=== PATIENT | female | born 1965 | race Caucasian/White ===

== ENCOUNTER 2017-06-02 08:00 | Outpatient (CLI) | payer OTHER ==
[2017-06-03 10:52] LABS: PROGESTERONE 1.1 ng/mL
== END 2017-06-02 23:59 | disposition home or self-care (01) ==
LOC: LAB.F 08:00
PROVIDERS: ATTEND Naturopath
DX: R00.2 Palpitations (principal); Z13.29 Encounter for screening for other suspected endocrine disorder; E27.8 Other specified disorders of adrenal gland
CPT/HCPCS: 36415; 81599; 82384; 82570; 82627; 82672; 84140; 84144; 84270; 84403

== ENCOUNTER 2017-06-16 09:02 | Outpatient (CLI) | payer OTHER ==
[2017-06-16 18:14] LABS: PROLACTIN 6.61 ng/mL
[2017-06-16 18:37] LABS: FOLLICLE STIMULATING HORMONE 84.43 mIU/mL; LUTEINIZING HORMONE 31.58 mIU/mL
== END 2017-06-16 09:03 | disposition home or self-care (01) ==
LOC: LAB.F 09:02
PROVIDERS: ATTEND Naprapath
DX: F41.9 Anxiety disorder, unspecified (principal); R00.2 Palpitations; Z13.29 Encounter for screening for other suspected endocrine disorder; E34.9 Endocrine disorder, unspecified
CPT/HCPCS: 36415; 82024; 82533; 83001; 83002; 84146

== ENCOUNTER 2017-06-21 09:41 | Outpatient (CLI) | payer OTHER | END 2017-06-21 09:42 | disposition home or self-care (01) | LOC: LAB.F 09:41 | PROVIDERS: ATTEND Naprapath | DX: Z13.29 Encounter for screening for other suspected endocrine disorder (principal); F41.9 Anxiety disorder, unspecified; R00.2 Palpitations; E34.9 Endocrine disorder, unspecified | CPT/HCPCS: 82024 ==

== ENCOUNTER 2017-06-22 09:00 | Outpatient (CLI) | payer OTHER | END 2017-06-22 09:01 | disposition home or self-care (01) | LOC: LAB.R 09:00 | PROVIDERS: ATTEND Naprapath | DX: F41.9 Anxiety disorder, unspecified (principal); R00.2 Palpitations; Z13.29 Encounter for screening for other suspected endocrine disorder; E34.9 Endocrine disorder, unspecified | CPT/HCPCS: 81599; 82384 ==

== ENCOUNTER 2018-06-04 16:37 | Outpatient (CLI) | payer OTHER ==
--- NOTE | 2018-06-07 13:37 | Ultrasound Report ---
Reason: ENDOCRINE DISORDER, UNSPECIFIED Procedure Date: 06/04/2018 Accession Number: [id number] / [id number] Procedure: US - Pelvic w/Transvaginal CPT Code: FULL RESULT: EXAM: PELVIC ULTRASOUND EXAM DATE: 06/04/2018 05:32 PM. CLINICAL HISTORY: ENDOCRINE DISORDER, UNSPECIFIED. COMPARISON: None. TECHNIQUE: Realtime transabdominal pelvic scan performed to identify the uterus and adnexa and as an overview of other pelvic structures, followed by transvaginal scan to provide greater detail of the uterus and adnexa, with static image documentation. FINDINGS: Uterus: 7.4 x 3.2 x 2.7 cm, volume 33 cc. Anteverted position. Normal overall size and echotexture. Masses: Hypoechoic 1.9 x 1.5 x 1.5 cm myometrial fundal mass, possible fibroid with submucosal component. Endometrium: Incomplete examination, additional color Doppler imaging transvaginally is needed. Cervix: Unremarkable. Right Ovary: 1.8 x 1.2 x 1.1 cm, volume 1.2 cc. Normal echotexture and blood flow. Left Ovary: 1.3 x 1.3 x 1.3 cm, volume 1.1 cc. Normal echotexture and blood flow. Free Fluid: None. Other: None. IMPRESSION: Fibroid uterus. Incomplete evaluation of the endometrium. Recommendation: The patient should return for completion of transvaginal ultrasound evaluation of the endometrium. An addendum will be issued. RADIA
== END 2018-06-04 16:38 | disposition home or self-care (01) ==
LOC: DI 16:37
PROVIDERS: ATTEND Naprapath
DX: D25.9 Leiomyoma of uterus, unspecified (principal)
CPT/HCPCS: 76830; 76856

== ENCOUNTER 2018-06-08 12:51 | Outpatient (CLI) | payer OTHER ==
--- NOTE | 2018-06-08 16:15 | Ultrasound Report ---
Reason: EO4.1 Procedure Date: 06/08/2018 Accession Number: [id number] / [id number] Procedure: US - Head or Neck Soft Tissue CPT Code: FULL RESULT: EXAM: THYROID ULTRASOUND EXAM DATE: 06/08/2018 02:18 PM. CLINICAL HISTORY: Thyroid nodule. COMPARISON: None. TECHNIQUE: Real time sonographic imaging of the thyroid was performed by the certified nurses aide. Multiple wholesale representative static images were saved for review. FINDINGS: THYROID GLAND: Right Lobe: 4.4 x 1.9 x 1.6 cm, volume 6.9 cc. Normal background echotexture. Right Lobe Nodules: Upper pole 1.2 x 1.4 x 1.1 cm, solid. Lower pole 2.1 x 1.4 x 0.9 cm, solid. Left Lobe: 4.3 x 1.9 x 1.1 cm, volume 4.6 cc. Normal background echotexture. Left Lobe Nodules: 1.1 x 0.9 x 0.8 cm. Isthmus: 0.32 cm AP. Isthmic Nodules: None. LYMPH NODES: No adenopathy demonstrated in the central or lateral compartment. OTHER: None. IMPRESSION: The 2.1 cm right inferior pole thyroid nodule warrants tissue sampling by FNA. Management recommendations are based on 2015 [place] [employer] Management Guidelines for Adult Patients with Thyroid Nodules and Differentiated Thyroid Cancer. RADIA
== END 2018-06-08 12:52 | disposition home or self-care (01) ==
LOC: DI 12:51
PROVIDERS: ATTEND Student in an Organized Health Care Education/Training Program
DX: E04.1 Nontoxic single thyroid nodule (principal)
CPT/HCPCS: 76536

== ENCOUNTER 2018-06-08 14:30 | Outpatient (CLI) | payer OTHER | END 2018-06-08 23:59 | disposition home or self-care (01) | LOC: DI 14:30 | PROVIDERS: ATTEND Naprapath | DX: E34.9 Endocrine disorder, unspecified (principal) | CPT/HCPCS: 76830; 76856 ==

== ENCOUNTER 2018-08-02 12:51 | Outpatient (CLI) | payer OTHER ==
[2018-08-02] MEDS ORDERED: GADOBUTROL 10 MMOL/10 ML VIAL ONE (13:13)
[2018-08-02] MEDS ORDERED: GADOBUTROL 10 MMOL/10 ML VIAL IVP ONE ×2 (14:32)
--- NOTE | 2018-08-02 17:09 | MRI Report ---
Reason: FUNDAL MYOMETRIAL MASS OF UTERUS Procedure Date: 08/02/2018 Accession Number: [id number] / [id number] Procedure: MRI - Pelvis W/WO CPT Code: FULL RESULT: EXAM: MR PELVIS WITH AND WITHOUT CONTRAST (MR FEMALE PELVIS) EXAM DATE: 08/02/2018 02:27 PM. CLINICAL HISTORY: FUNDAL MYOMETRIAL MASS OF UTERUS. COMPARISON: 06/08/2018 2:25 PM PELVIC W/TRANSVAGINAL 06/04/2018 5:08 PM. TECHNIQUE: Multiplanar breath-hold T1, T2 obtained through the pelvis on an MR scanner. Images obtained before and after administration of 8 mL Gadavist intravenous contrast. FINDINGS: Reproductive Organs: Uterus: The uterus is anteverted and measures 6.2 x 2.5 x 4.5 cm with volume 36 cc. The endometrial stripe measures 2 mm. Left fundal subserosal enhancing fibroid measures 1.9 x 1.9 x 1.6 cm. Nabothian cysts in cervix. Right Ovary: The right ovary measures 1.6 x 1.0 x 1.8 cm with volume 1.5 cc. The right ovary appears normal. Left Ovary: The left ovary measures 1.3 x 1.4 x 1.7 cm with volume 1.6 cc. The left ovary appears normal. Bowel: Extensive diverticulosis. Evaluation of rectum and sigmoid colon are limited by underdistention. No dilated bowel to suggest obstruction. Normal appendix anterolateral to right psoas muscle. Bladder: The urinary bladder appears normal. Other: There is a 2.3 x 2.3 x 2.1 cm left femoral head cyst with mild adjacent edema and enhancement. Question geode, bone cyst IMPRESSION: 1. A 1.9 cm left fundal subserosal uterine fibroid. 2. Normal endometrial stripe thickness. 3. Extensive diverticulosis. 4. Prominent left femoral head cyst, question geode from degenerative changes. RADIA
== END 2018-08-02 12:52 | disposition home or self-care (01) ==
LOC: DI 12:51
PROVIDERS: ATTEND Naprapath
DX: D25.2 Subserosal leiomyoma of uterus (principal); K57.90 Diverticulosis of intestine, part unspecified, without perforation or abscess without bleeding; M85.652 Other cyst of bone, left thigh; N85.4 Malposition of uterus
CPT/HCPCS: 72197; A9585

== ENCOUNTER 2019-03-06 14:29 | Outpatient (CLI) | payer OTHER ==
--- NOTE | 2019-03-14 09:20 | Mammography Report ---
Reason: SCREENING MAMMO Procedure Date: 03/06/2019 Accession Number: [id number] / [id number] Procedure: [facility] - Screening Mammo w/Patrick CPT Code: FULL RESULT: EXAM: Screening Mammo w/Patrick DATE: 03/06/2019 3:46 PM CLINICAL HISTORY: Screening encounter. History of benign left breast biopsy. History of bilateral breast reduction surgery. TECHNIQUE: (B) - Bilateral CC and MLO views were obtained. COMPARISON: 04/10/2015. PARENCHYMAL PATTERN: (D) - The breast(s) demonstrate(s) heterogeneously dense fibroglandular parenchyma. FINDINGS: Typically benign stable intramammary right breast lymph node is noted. There are no suspicious masses, calcifications, or areas of distortion. IMPRESSION: Benign findings. BI-RADS category 2. RECOMMENDATION: (ANNUAL) - Recommend routine annual screening mammography. BI-RADS CATEGORY: (2) - Benign Findings. STANDARD QUALIFYING STATEMENTS: 1. This examination was not reviewed with the aid of Computer-Aided Detection (CAD). 2. A negative or benign imaging report should not preclude biopsy if clinically suspicious findings are present. 3. Dense breasts may obscure an underlying neoplasm. 4. This examination was reviewed with the aid of 3D breast imaging (tomosynthesis).
== END 2019-03-06 14:30 | disposition home or self-care (01) ==
LOC: DI 14:29
DX: Z12.31 Encounter for screening mammogram for malignant neoplasm of breast (principal)
CPT/HCPCS: 77063; 77067